=== PATIENT | female | born 1980 ===

== ENCOUNTER 2021-01-15 11:45 | Inpatient (IN) | payer OTHER ==
[~2021-01-15] VITALS: Ht 149.9 cm; Wt 54.4 kg
[2021-01-26] MEDS ORDERED: SIMETHICONE125 M1 PO (08:54)
[2021-01-26] MEDS ORDERED: IBUPROFEN800 MG PO (08:54)
[2021-01-26] MEDS ORDERED: INTESTINEX680 M1 PO (08:54)
[2021-01-26] MEDS ORDERED: INTEGRA F CAPS1 EACH PO (08:54)
[2021-01-26] MEDS ORDERED: LEVOFLOXACIN500 MG PO (08:54)
== END 2021-01-26 10:04 | disposition home or self-care (01) | DRG 743 ==
LOC: O/R 01-18 05:39 → OB/GYN 01-18 05:39 → SURH 01-18 11:45 → OB/GYN 01-18 13:58 → SURH 01-18 19:15 → OB/GYN 01-26 10:04
PROVIDERS: Urology; ADMIT Obstetrics & Gynecology; ATTEND Obstetrics & Gynecology
PROC: 0UT90ZZ Resection of Uterus, Open Approach (ICD-10-PCS; principal; 2021-01-18 19:15)
PROC: 0T788DZ Dilation of Bilateral Ureters with Intraluminal Device, Via Natural or Artificial Opening Endoscopic (ICD-10-PCS; 2021-01-18 19:15)
PROC: 30233N1 Transfusion of Nonautologous Red Blood Cells into Peripheral Vein, Percutaneous Approach (ICD-10-PCS; 2021-01-20)
DX: D25.1 Intramural leiomyoma of uterus (principal); D25.2 Subserosal leiomyoma of uterus; N80.0 Endometriosis of uterus; N88.8 Other specified noninflammatory disorders of cervix uteri; D26.1 Other benign neoplasm of corpus uteri; R19.00 Intra-abdominal and pelvic swelling, mass and lump, unspecified site; E78.00 Pure hypercholesterolemia, unspecified; D50.0 Iron deficiency anemia secondary to blood loss (chronic); N94.89 Other specified conditions associated with female genital organs and menstrual cycle
CPT/HCPCS: 72191

== ENCOUNTER 2025-07-03 09:00 | Day surgery (SDC) | payer OTHER ==
[~2025-07-03 09:00] MED LIST: IBUPROFEN800 MG PO; INTEGRA F CAPS1 EACH PO; INTESTINEX680 M1 PO; LEVOFLOXACIN500 MG PO; SIMETHICONE125 M1 PO
[2025-07-03] MEDS ORDERED: CEFAZOLIN SODIUM 1,000 MG VIAL ONE (10:49)
[2025-07-03] MEDS ORDERED: BUPIVACAINE HCL/MPF 0.5% 30ML VIAL ONE (13:21)
[2025-07-03] MEDS ORDERED: POVIDONE-IODINE 118 ML BOTT TOP ONE (13:21)
[2025-07-03] MEDS ORDERED: TRAM1TAB98 PO (16:58)
[2025-07-03] MEDS ORDERED: ONDANSETRON HCL 2 MG/ML VIAL ONE (17:36)
== END 2025-07-03 18:00 | disposition home or self-care (01) ==
LOC: CIR.AMB 09:00
PROVIDERS: ATTEND Obstetrics & Gynecology
DX: N73.6 Female pelvic peritoneal adhesions (postinfective) (principal); N70.11 Chronic salpingitis; R10.2 Pelvic and perineal pain